=== PATIENT | female | born 1995 | race Caucasian/White ===

== ENCOUNTER 2017-05-24 00:21 | Emergency (ER) | payer MEDICAID ==
[~2017-05-24] VITALS: Ht 160 cm; Wt 61.4 kg
[2017-05-24 00:29] VITALS: Ht 160 cm; Wt 61.4 kg
--- NOTE | 2017-05-24 01:02 | ERA ---
ER Documentation Chief Complaint Date/Time DATE: 05/24/17 TIME: 01:01 Chief Complaint Self-inflicted wound HPI The patient is a 22-year-old female, presenting to the ER because C got her bilateral forearm with a razor blade. She was having a panic attack and cut her forearms. She denies suicidal, homicidal, auditory, visual hallucination. She denies headache, neck pain, chest pain, dyspnea, abdominal pain, vomiting, dysuria, diarrhea. He was recently admitted to psychiatric hospital about 5 months ago. She is smokes, denies drinking, denies illicit drug and did not have Td injection for many years Past medical history: Schizophrenia, bipolar, anxiety, PTSD Past surgical history: None ROS All systems reviewed and are negative except as per history of present illness. Medications Home Meds Reported Medications Hydroxyzine Hcl* (Hydroxyzine Hcl*) Unknown Strength Tablet, 0 PO Q6H Y for ITCHING, #30 TAB 05/24/17 Gabapentin* (Gabapentin*) 300 Mg Capsule, 300 MG PO TID, #90 CAP TAKE 600MG QAM: 300MG QPM: 600MG QHS 05/24/17 Quetiapine Fumarate* (Seroquel*) 200 Mg Tablet, 200 MG PO HS, #30 TAB 05/24/17 Posen Carbonate* (Posen*) 300 Mg Cap, 900 MG PO QHS, CAP 05/24/17 Allergies Allergies: Coded Allergies: No Known Allergy (Unverified , 05/24/17) Physical Exam Vitals Vital Signs Date Time Temp Pulse Resp B/P Pulse Ox O2 Delivery O2 Flow Rate FiO2 05/24/17 00:29 97.9 120 18 115/71 100 Physical Exam Const: No acute distress. Head: Atraumatic. Eyes: Normal Conjunctiva. ENT: Normal External Ears, Nose and Mouth. Neck: Full range of motion. No meningismus. Resp: Clear to auscultation bilaterally. Cardio: Regular tachycardic Abd: Soft, non distended, normal bowel sounds, non tender. Skin: No petechiae or rashes. Back: No midline or flank tenderness. Ext: Superficial cuts on bilateral forearms, not amenable for repair Neur: Awake and alert. No focal deficit Psych: Depressed Result Diagram: 05/24/17 0115 05/24/17 0115 Results 24 hrs Laboratory Tests Test 05/24/17 01:00 05/24/17 01:15 Urine Color YELLOW Urine Clarity CLOUDY Urine pH 5.0 Urine Specific [place] 1.006 Urine Ketones NEGATIVEmg/dL Urine Nitrite NEGATIVEmg/dL Urine Bilirubin NEGATIVEmg/dL Urine Urobilinogen NEGATIVEmg/dL Urine Leukocyte Esterase TRACELeu/ul Urine Microscopic RBC 0/HPF Urine Microscopic WBC 3/HPF Urine Squamous Epithelial Cells MODERATE/HPF Urine Amorphous Crystals FEW/HPF Urine Bacteria FEW/HPF Urine Hemoglobin NEGATIVEmg/dL Urine Glucose NEGATIVEmg/dL Urine Total Protein NEGATIVEmg/dl Urine Opiates Screen Negative Urine Barbiturates Negative Urine Amphetamines Screen Negative Urine Benzodiazepines Screen Negative Urine Cocaine Screen Negative Urine Cannabinoids Positive White Blood Count 14.210^3/ul Red Blood Count 4.4010^6/ul Hemoglobin 13.8g/dl Hematocrit 40.3% Mean Corpuscular Volume 91.6fl Mean Corpuscular Hemoglobin 31.4pg Mean Corpuscular Hemoglobin Concent 34.2g/dl Red Cell Distribution Width 12.9% Platelet Count 82620^3/UL Mean Platelet Volume 10.5fl Neutrophils % 82.7% Lymphocytes % 10.8% Monocytes % 5.2% Eosinophils % 0.2% Basophils % 0.4% Nucleated Red Blood Cells % 0.0/100WBC Neutrophils # 11.710^3/ul Lymphocytes # 1.510^3/ul Monocytes # 0.710^3/ul Eosinophils # 0.010^3/ul Basophils # 0.110^3/ul Nucleated Red Blood Cells # 0.010^3/ul Sodium Level 146mmol/L Potassium Level 4.2mmol/L Chloride Level 103mmol/L Carbon Dioxide Level 26mmol/L Anion Gap 21 Blood Urea Nitrogen 7mg/dl Creatinine 0.89mg/dl Glucose Level 60mg/dl Calcium Level 9.5mg/dl Total Bilirubin 0.2mg/dl Direct Bilirubin 0.00mg/dl Indirect Bilirubin 0.2mg/dl Aspartate Amino Transf (AST/SGOT) 20IU/L Alanine Aminotransferase (ALT/SGPT) 25IU/L Alkaline Phosphatase 65IU/L Total Protein 7.6g/dl Albumin 4.5g/dl Globulin 3.10g/dl Albumin/Globulin Ratio 1.45 Serum HCG, Qualitative NEGATIVE Beta HCG, Quantitative < 2.4mIU/ml Salicylates Level < 1.0mg/dl Acetaminophen Level < 10.0ug/ml Ethyl Alcohol Level < 10.0mg/dl Current Medications Medications (Trade) Dose Ordered Sig/Judy Route PRN Reason Start Time Stop Time Status Last Admin Dose Admin Diphtheria/ Tetanus/Acell Pertussis (Adacel) 0.5 ml ONCE ONCE IM* 05/24/17 01:30 05/24/17 01:31 DC 05/24/17 01:47 Lorazepam (Ativan) 2 mg STK-MED ONCE .ROUTE 05/24/17 03:38 05/24/17 03:39 DC Procedures/[place] [id number] Radiology Main Line: [phone] DIAGNOSTIC IMAGING REPORT Patient: STORMY MCCALLUM : 1995 Age: 22 Sex: F MR #: [id number] DOS: 05/24/17 0227 Ordering MD: ROMA LOWRY MD Location: E/R Room/Bed: PROCEDURE: ULTRASOUND OBSTETRICAL CLINICAL INDICATION: 22-year-old female with vaginal bleeding. TECHNIQUE: Multiple sonographic images of the pelvis were obtained utilizing a transabdominal and endovaginal technique. The images were reviewed on a PACS workstation. COMPARISON: None. FINDINGS: The uterus is visualized and measures 6 points 5 x 3.3 x 4.5 cm. The endometrial echo complex is within normal limits and measures 7.1 mm. There is no sonographic evidence for an intrauterine gestation. There is no evidence for free fluid. The right ovary has a normal echotexture and measures 3.7 x 2.1 x 2.4 cm. The left ovary has a normal echotexture and measures 3.3 x 2.2 x 2.5 cm. Multiple bilateral ovarian follicular cysts are seen. There is a dominant right ovarian follicular cyst measuring 1.5 x 1.2 cm. There is a dominant left ovarian follicular cyst measuring 1.2 x 1.1 cm. There is flow identified within the ovaries bilaterally. No adnexal masses are noted. IMPRESSION: 1. No sonographic evidence for an intrauterine gestation. If the patient has a positive test, an ectopic cannot be excluded. Clinical correlation is necessary. 2. Bilateral ovarian follicular cysts. .Ajit Triplett MD, Date Time Electronically viewed and signed by .Ajit Triplett MD, MD on 05/24/2017 03:23 .M/ CC: ROMA LOWRY MD MEDICAL MAKING DECISION: The patient is 22-year-old female, presenting with acute self-inflicted wounds, acute psychosis, marijuana abuse. Initially the serum beta-hCG qualitative is positive; therefore the pelvic ultrasound and serum beta-hCG quantitative were ordered. The beta-hCG is less than 2.4; the lab now corrected that the beta hCG qualitative is negative The differential diagnoses considered include but are not limited to psychosis, drug-induced psychosis, decompensated psychiatric illness, anxiety attack, panic attack Departure Diagnosis: Primary Impression: Psychosis Additional Impression: Marijuana abuse Condition: Stable Comments I discussed the person with the telepsychiatrist who put her on 5150 hold She was treated with Ativan 1 mg IM and restraint because she was agitated and hitting herself with good response ROMA LOWRY MD May 24, 2017 01:01
[2017-05-24 01:28] LABS: WHITE BLOOD COUNT 14.2 10^3/ul (4.8-10.8)
[2017-05-24 01:29] LABS: BASOPHIL # 0.1 10^3/ul (0.0-0.1); BASOPHILS % 0.4 % (0.0-2.0); EOSINOPHILS % 0.2 % (0.0-7.0); HEMATOCRIT 40.3 % (37.0-47.0); HEMOGLOBIN 13.8 g/dl (12.0-16.0); LYMPHOCYTES # 1.5 10^3/ul (0.8-2.9); LYMPHOCYTES % 10.8 % (18.0-55.0); MEAN CORPUSCULAR HEMOGLOBIN 31.4 pg (29.0-33.0); MEAN CORPUSCULAR HGB CONC 34.2 g/dl (32.0-37.0); MEAN CORPUSCULAR VOLUME 91.6 fl (72.0-104.0); MEAN PLATELET VOLUME 10.5 fl (7.4-10.4); MONOCYTE # 0.7 10^3/ul (0.3-0.9); MONOCYTES % 5.2 % (0.0-13.0); NEUTROPHIL # 11.7 10^3/ul (1.6-7.5); NEUTROPHILS % 82.7 % (30.0-74.0); PLATELET COUNT 304 10^3/UL (140-415); RED CELL DISTRIBUTION WIDTH 12.9 % (11.5-14.5)
[2017-05-24] MEDS ORDERED: DIPHTH/TET/ACEL PERTUSS (ADULT) 0.5 ML VIAL IM* ONE (01:30)
[2017-05-24 01:42] LABS: ADD UMIC YES; UR AMORPHOUS CRYSTAL FEW /HPF (NONE SEEN); UR ASCORBIC ACID NEGATIVE (NEGATIVE); UR BACTERIA FEW /HPF (NONE SEEN); UR BILIRUBIN (Dip) NEGATIVE (NEGATIVE); UR BLOOD (Dip) NEGATIVE (NEGATIVE); UR CLARITY CLOUDY (CLEAR); UR COLOR YELLOW (YELLOW); UR GLUCOSE (Dip) NEGATIVE (NEGATIVE); UR KETONES (Dip) NEGATIVE (NEGATIVE); UR LEUKOCYTE ESTERASE (Dip) TRACE Leu/ul (NEGATIVE); UR NITRITE (Dip) NEGATIVE (NEGATIVE); UR RBC 0 /HPF (0-5); UR SPECIFIC GRAVITY (Dip) 1.006 (1.003-1.030); UR SQUAMOUS EPITHELIAL CELL MODERATE /HPF (FEW); UR TOTAL PROTEIN (Dip) NEGATIVE (NEGATIVE); UR UROBILINOGEN (Dip) NEGATIVE (NEGATIVE)
[2017-05-24 01:50] LABS: ALANINE AMINOTRANSFERASE 25 IU/L (13-69); ALBUMIN 4.5 g/dl (3.3-4.9); ALBUMIN/GLOBULIN RATIO 1.45; ALKALINE PHOSPHATASE 65 IU/L (42-121); ANION GAP 21 (8-16); ASPARTATE AMINO TRANSFERASE 20 IU/L (15-46); BILIRUBIN,INDIRECT 0.2 mg/dl (0-1.1); BILIRUBIN,TOTAL 0.2 mg/dl (0.2-1.3); BLOOD UREA NITROGEN 7 mg/dl (7-20); CALCIUM 9.5 mg/dl (8.4-10.2); CARBON DIOXIDE 26 mmol/L (21-31); CHLORIDE 103 mmol/L (97-110); CREATININE 0.89 mg/dl (0.44-1.00); GLUCOSE 60 mg/dl (70-220); POTASSIUM 4.2 mmol/L (3.5-5.1); SODIUM 146 mmol/L (135-144); TOTAL PROTEIN 7.6 g/dl (6.1-8.1)
[2017-05-24 01:51] LABS: ACETAMINOPHEN < 10.0 ug/ml (10.0-30.0)
[2017-05-24 01:51] LABS: BARBITURATES Negative (NEGATIVE); BENZODIAZEPINES Negative (NEGATIVE); CANNABINOIDS Positive (NEGATIVE); COCAINE Negative (NEGATIVE); OPIATES Negative (NEGATIVE)
[2017-05-24 01:52] LABS: ETHANOL < 10.0 mg/dl; SALICYLATE < 1.0 mg/dl (5.0-30.0)
[2017-05-24] MEDS ORDERED: QUET200T PO (02:04)
[2017-05-24] MEDS ORDERED: LIT300 PO (02:04)
[2017-05-24] MEDS ORDERED: GABA300C16 PO (02:04)
[2017-05-24] MEDS ORDERED: HYDR-3011 PO (02:05)
--- NOTE | 2017-05-24 03:23 | RADRPT ---
PROCEDURE: ULTRASOUND OBSTETRICAL CLINICAL INDICATION: 22-year-old female with vaginal bleeding. TECHNIQUE: Multiple sonographic images of the pelvis were obtained utilizing a transabdominal and endovaginal technique. The images were reviewed on a PACS workstation. COMPARISON: None. FINDINGS: The uterus is visualized and measures 6 points 5 x 3.3 x 4.5 cm. The endometrial echo complex is wit hin normal limits and measures 7.1 mm. There is no sonographic evidence for an intrauterine gestatio n. There is no evidence for free fluid. The right ovary has a normal echotexture and measures 3.7 x 2.1 x 2.4 cm. The left ovary has a normal echotexture and measures 3.3 x 2.2 x 2.5 cm. Multiple mike ateral ovarian follicular cysts are seen. There is a dominant right ovarian follicular cyst measurin g 1.5 x 1.2 cm. There is a dominant left ovarian follicular cyst measuring 1.2 x 1.1 cm. There is f low identified within the ovaries bilaterally. No adnexal masses are noted. IMPRESSION: 1. No sonographic evidence for an intrauterine gestation. If the patient has a positive test, an ectopic cannot be excluded. Clinical correlation is necessary. 2. Bilateral ovarian follicular cysts. .Ajit Triplett MD, MD Date Time Electronically viewed and signed by .Ajit Triplett MD, on 05/24/2017 03:23 .[place]/
[2017-05-24] MEDS ORDERED: LORAZEPAM 2 MG INJ ONE (03:38)
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
[2017-05-24] MEDS ORDERED: LORAZEPAM 2 MG INJ IM ONE (04:30)
[2017-05-24 08:13] VITALS: BP 110/72; PULSE 88; RESP 16; TEMP 98.5
== END 2017-05-24 09:28 ==
LOC: E/R 00:21
DX: F29 Unspecified psychosis not due to a substance or known physiological condition (principal); F12.10 Cannabis abuse, uncomplicated; F17.210 Nicotine dependence, cigarettes, uncomplicated; S51.801A Unspecified open wound of right forearm, initial encounter; R40.2142 Coma scale, eyes open, spontaneous, at arrival to emergency department; R40.2362 Coma scale, best motor response, obeys commands, at arrival to emergency department; R40.2232 Coma scale, best verbal response, inappropriate words, at arrival to emergency department; X78.8XXA Intentional self-harm by other sharp object, initial encounter; Y92.9 Unspecified place or not applicable; Z23 Encounter for immunization
CPT/HCPCS: 36415; 76801; 76817; 80053; 80306; 80307; 81001; 84702; 84703; 85025; 90471; 90715; 96372; J2060; Z7502